=== PATIENT | female | born 1990 | race African-American/Black ===

== ENCOUNTER 2020-01-24 12:29 | Outpatient (CLI) | payer OTHER ==
[2020-01-24 13:22] LABS: BASOPHILS % (AUTO) 0.8 %; EOSINOPHILS % (AUTO) 0.8 %; HGB - HEMOGLOBIN 10.8 g/dL (12.0-16.0); LYMPHOCYTES # (AUTO) 1.2 10^3/uL (1.5-3.5); LYMPHOCYTES % (AUTO) 31.3 %; MEAN CORPUSCULAR HEMOGLOBIN 27.1 pg (27.0-31.0); MEAN CORPUSCULAR HGB CONC 31.3 g/dL (32.0-36.0); MEAN CORPUSCULAR VOLUME 86.5 fL (81.0-99.0); MEAN PLATELET VOLUME 8.9 fL (7.9-10.8); MONOCYTES # (AUTO) 0.3 10^3/uL (0.0-1.0); MONOCYTES % (AUTO) 8.2 %; NEUTROPHILS # (AUTO) 2.3 10^3/uL (1.5-6.6); NEUTROPHILS % (AUTO) 58.6 %; PLT - PLATELET COUNT 383 10^3/uL (130-450); RED BLOOD COUNT 3.99 10^6/uL (4.20-5.40); RED CELL DISTRIBUTION WIDTH 18.2 % (12.0-15.0); WHITE BLOOD COUNT 3.9 x10^3/uL (4.8-10.8)
== END 2020-01-24 12:30 | disposition home or self-care (01) ==
LOC: LAB 12:29
PROVIDERS: ATTEND Obstetrics & Gynecology
DX: Z01.812 Encounter for preprocedural laboratory examination (principal); D25.1 Intramural leiomyoma of uterus
CPT/HCPCS: 36415; 85025; 86850; 86900; 86901

== ENCOUNTER 2024-02-22 13:14 | Outpatient (CLI) | payer OTHER ==
[2024-02-22] MEDS ORDERED: iohexoL-300 150 ML BOTTLE ONE (13:30)
[2024-02-22] MEDS: iohexoL-300 150 ML BOTTLE IVP ONE (13:59)
--- NOTE | 2024-02-22 15:56 | CT Report ---
PROCEDURE: IVP INDICATIONS: HEMATURIA, ABD PAIN CONTRAST: 140ml Omni 300 TECHNIQUE: A [address] of the abdomen and pelvis was performed. Non-contrast and contrast images were recorded and evaluated at appropriate window settings. Images were recorded and evaluated at appropriate windo w settings. Reformats: coronal and sagittal. For radiation dose reduction, the following was used: au tomated exposure control, adjustment of convex left scoliosis. 3 interval casting with improved align ment at the tibia and fibula fractures. MA and/or kV according to patient size. COMPARISON: No relevant comparisons at time of dictation. FINDINGS: Image quality: Diagnostic. OTHER Lower chest: Unremarkable. Liver: No solid mass. Gallbladder and biliary tree: No radiopaque stones or wall thickening. No biliary dilation. Spleen: No splenomegaly. Pancreas: No pancreatic ductal dilation. Adrenals: No adrenal nodule. Kidneys and ureters: Both kidneys are normal in size. Small burden of punctate, bilateral nonobstruct ing nephrolithiasis. No hydronephrosis. No solid masses or complex cysts which require follow up. The opacified renal calyces and ureters appear normal, without filling defect. Stomach, bowel and peritoneum: No bowel distension. No pathologic free fluid. Normal appendix. Abdominal Lymph nodes: No central or retroperitoneal adenopathy. Vessels: Unremarkable. Reproductive organs: Unremarkable. Bladder: No abnormal wall thickening, accounting for underdistention. No calcified bladder stones. No filling defect within the opacified bladder. Pelvic Lymph nodes: Unremarkable. Bones: No aggressive osseous abnormality. Other: Small umbilical hernia containing fat. IMPRESSION: Small burden of punctate, bilateral nonobstructing nephrolithiasis. No hydronephrosis. Reviewed by: Matthew Murcia MD on 02/22/2024 3:54 PM PDT Approved by: Matthew Murcia MD on 02/22/2024 3:54 PM PDT Station ID: [id number]
== END 2024-02-22 13:15 | disposition home or self-care (01) ==
LOC: DI 13:14
PROVIDERS: ATTEND General Practice
DX: N20.0 Calculus of kidney (principal)